=== PATIENT | female | born 1960 | race Caucasian/White ===

== ENCOUNTER 2016-08-29 17:19 | Emergency (ER) | payer MEDICAID ==
[2015-01-25 22:47] VITALS: BMI 27.9
[~2016-08-29 17:19] MED LIST: CARAFATE1 G/10 ML PO; CYMBALTA20 MG PO; HYDROCODONE-APA1 TAB PO; HYZAAR 50-12.51 TAB PO; IPRAT-ALBUT 0.5-3 ML UPD; K-DUR20 MEQ PO; LANTUS INSULIN10 ML SC; NITROSTAT0.4 MG SL; NOVOLOG100 U/M1 SC; PLAVIX75 MG PO; PROTONIX40 MG PO; VALIUM5 MG PO; ZANTAC150 MG PO
[2016-08-29 17:52] LABS: BASOPHILS 0.4 % (0-2); EOSINOPHILS 0.8 % (0-7); HEMATOCRIT 43.7 % (36.0-48.0); HEMOGLOBIN 15.2 g/dL (12-16); IMMATURE GRANULOCYTES 0.1 % (0-5); LYMPHOCYTES 27.3 % (15-50); MCH 31.8 pg (26.0-34.0); MCHC 34.8 g/dL (31.0-37.0); MCV 91.4 fL (80.0-100.0); MEAN PLATELET VOLUME 11.2 fL (7.4-10.4); MONOCYTES 7.1 % (2-11); NEUTROPHILS 64.3 % (40-80); PLATELET COUNT 240 10x3/uL (130-400); RBC 4.78 10x6/uL (4.00-5.40); RDW 13.3 % (11.5-14.5); WBC 8.4 10x3/uL (4.8-10.8)
[2016-08-29 18:09] LABS: ALKALINE PHOSPHATASE 94 U/L (46-116); ALT (SGPT) 37 U/L (10-68); BILIRUBIN - TOTAL 0.34 mg/dL (0.2-1.3); CALC OSMOLALITY 280 mosm/kg (275-300); CALCIUM 9.6 mg/dL (8.5-10.1); CARBON DIOXIDE 29.6 mmol/L (21.0-32.0); CHLORIDE - SERUM 103 mmol/L (98-107); CREATININE - SERUM 0.7 mg/dL (0.6-1.3); GLUCOSE 92 mg/dL (74-106); POTASSIUM - SERUM 3.7 mmol/L (3.5-5.1); PROTEIN - SERUM 7.8 g/dL (6.4-8.2); SODIUM 141 mmol/L (136-145); UREA NITROGEN 12 mg/dL (7-18); eGFR NON AFRICAN AMERICAN > 90 mL/min (90-120)
[2016-08-29 18:19] LABS: CHOL - HDL RATIO 3.4 ratio (2.3-4.1); CHOLESTEROL, TOTAL 186 mg/dL (0-200); CREATINE KINASE 193 UL (21-215); HDL CHOLESTEROL 54 mg/dL (32-96); LDL CHOLESTEROL 108 mg/dL (0-100); TRIGLYCERIDE 120 mg/dL (30-200)
[2016-08-29 18:23] LABS: TROPONIN-I < 0.017 ng/mL (0.000-0.060)
== END 2016-08-29 22:33 | disposition home or self-care (01) ==
LOC: D.ER 17:19
PROVIDERS: Emergency Medicine
DX: R07.9 Chest pain, unspecified (principal); Z86.718 Personal history of other venous thrombosis and embolism; E11.9 Type 2 diabetes mellitus without complications; J44.9 Chronic obstructive pulmonary disease, unspecified; F32.9 Major depressive disorder, single episode, unspecified; I10 Essential (primary) hypertension; K21.9 Gastro-esophageal reflux disease without esophagitis; C55 Malignant neoplasm of uterus, part unspecified; F17.200 Nicotine dependence, unspecified, uncomplicated